=== PATIENT | male | born 1980 | race Caucasian/White ===

== ENCOUNTER 2017-09-28 09:50 | Emergency (ER) | payer OTHER ==
[2017-09-28 09:54] VITALS: BP 145/71; PULSE 80; TEMP 97.6; BMI 27.4
--- NOTE | 2017-09-28 10:46 | PDOC ---
History of Present Illness - General Chief Complaint: Laceration Stated Complaint: LT FINGER LACERATION Time Seen by Provider: 09/28/17 10:12 History Source: Patient, Parent(s) Exam Limitations: No Limitations - History of Present Illness Initial Comments: 09/28/17 11:14 Patient states was opening a package slipped and incised the lateral aspect of his left thumb. Cleaned at home but came for evaluation, last tetanus was 3 years ago 09/28/17 11:15 Occurred: reports: just prior to arrival, this morning Severity: reports: mild, moderate Pain Location: reports: upper extremity Loss of Consciousness: no loss of consciousness Past History - Travel Traveled outside of the country in the last 30 days: No Close contact w/someone who was outside of country & ill: No - Past Medical History Allergies/Adverse Reactions: Allergies Allergy/AdvReac Type Severity Reaction Status Date / Time doxycycline Allergy Rash Verified 09/28/17 09:53 Home Medications: Ambulatory Orders NK [No Known Home Medication] 09/28/17 COPD: No Other medical history: NONE - Suicide/Smoking/Psychosocial Hx Smoking History: Never smoked Number of Cigarettes Smoked Daily: 0 Hx Alcohol Use: No Drug/Substance Use Hx: No Substance Use Type: None Review of Systems - Review of Systems Able to Perform ROS?: Yes Is the patient limited Slovenian proficient: Yes Constitutional: Yes: Symptoms Reported, See HPI. No: Loss of Appetite Musculoskeletal: Yes: Symptoms Reported Integumentary: Yes: Symptoms Reported, See HPI All Other Systems: Reviewed and Negative *Physical Exam - Vital Signs Last Vital Signs Temp Pulse Resp BP Pulse Ox 97.6 F 80 20 145/71 98 09/28/17 09:51 09/28/17 09:51 09/28/17 09:51 09/28/17 09:51 09/28/17 09:51 - Physical Exam General Appearance: Yes: Nourished, Appropriately Dressed, Apparent Distress HEENT: positive: PATRICIA, Normal ENT Inspection, TMs Normal, Pharynx Normal Neck: positive: Tender Gastrointestinal/Abdominal: negative: Normal Bowel Sounds Musculoskeletal: positive: Normal Inspection Extremity: positive: Normal Capillary Refill, Normal Range of Motion, Other ( 2cm superficial across distal aspect of left thumb. 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 NML intact, Fully Oriented, Alert, Normal Mood/ Affect, Normal Response, Motor Strength 5/5 Progress Note - Progress Note Progress Note: Superficial laceration, Steri-Stripped used as wound was not deep enough for suture repair *DC/Admit/Observation/Transfer Diagnosis at time of Disposition: Laceration of finger Qualifiers: Encounter type: initial encounter Finger: thumb Damage to nail status: without damage Foreign body presence: without foreign body Laterality: left Qualified Code(s): S61.012A - Laceration without foreign body of left thumb without damage to nail, initial encounter - Discharge Dispostion Disposition: HOME Condition at time of disposition: Stable Admit: No - Referrals Referrals: Rodger Horn MD [Primary Care Provider] - - Patient Instructions Printed Discharge Instructions: DI for Laceration Repair -- Simple Additional Instructions: Rest, elevate, avoid strenuous activity or heavy lifting until Steri-Strips lift off Avoid soaking hands or excessive water for the next few days May trim loose ends of Steri-Strips until wound is healed May use Tylenol or Motrin for pain relief - Post Discharge Activity Forms/Work/School Notes: Back to Work
== END 2017-09-28 11:18 | disposition home or self-care (01) ==
LOC: JERFT 09:50
DX: S61.012A Laceration without foreign body of left thumb without damage to nail, initial encounter (principal); W45.8XXA Other foreign body or object entering through skin, initial encounter; Y93.89 Activity, other specified; Y92.9 Unspecified place or not applicable
CPT/HCPCS: 99282-25